=== PATIENT | female | born 1995 | race Caucasian/White ===

== ENCOUNTER 2023-09-11 16:19 | Inpatient (IN) | payer OTHER ==
[~2023-09-11] VITALS: Ht 165.1 cm; Wt 84.4 kg
[2023-09-11 18:17] LABS: URINE APPEARANCE Cloudy; URINE BILIRRUBIN Negative (NEGATIVE); URINE BLOOD Negative; URINE COLOR Dark Yellow; URINE GLUCOSE Negative (NEGATIVE); URINE LEUKOCYTE Small; URINE NITRATE Negative; URINE PROTEIN Trace (NEGATIVE)
[2023-09-11 18:22] LABS: URINE BACTERIA 3076.8 uL (0.0-1933); URINE EPITHELIAL CELLS 106.8 uL (0.0-38.8); URINE RBC 21.9 uL (0.0-20.8); URINE WBC 41.1 uL (0.0-23.2)
[2023-09-11 18:37] LABS: HEMATOCRIT 36.4 % (36.0-45.00); MEAN CELL VOLUME 75.1 fL (80.00-100.00); MEAN CORPUSCULAR HEMOGLOBIN 24.8 pg (27.00-32.0); MEAN CORPUSCULAR HGB CONC 33.1 g/dl (32.0-36.0); PLATELET COUNT 126 K/uL (150-450); RED BLOOD COUNT 4.84 M/uL (4.00-6.00); RED CELL DISTRIBUTION WIDTH 20.3 % (11.5-14.5)
[2023-09-12] MEDS ORDERED: PRENATAL TABLE1 EAC4 PO (13:13)
[2023-09-12] MEDS ORDERED: IRON325 MG PO (13:18)
[2023-09-15 16:07] LABS: INR 0.94; PARTIAL THROMBOPLASTIN TIME 24.7 SECONDS (22.0-34.0); PROTHROMBIN TIME 9.9 SECONDS (9.0-11.5)
[2023-09-15 16:13] LABS: ALBUMIN 2.7 gm/dL (3.4-5.0); BILIRUBIN TOTAL 0.27 mg/dL (0.3-1.2); CALCIUM 8.7 mg/dL (8.5-10.1); CREATININE SERUM 0.42 mg/dL (0.55-1.02); GFR 180.98; GLOBULINA 3.3 G/DL (2.4-3.5); POTASSIUM 3.21 mEq/L (3.5-5.1)
[2023-09-16 22:31] LABS: BASE EXCESS -1.2 mmol/l; BICARBONATE 21.5 mmol/l (23-25); SaO2 74.9 %; Tco2 22.5 mmol/l
[2023-09-16 22:48] LABS: ABG PO2 37.6 mmHg (80-100); o2 21 %
== END 2023-09-18 15:38 | disposition home or self-care (01) | DRG 805 ==
LOC: OBS/DEL 16:19 → OB/GYN 09-12 12:55 → LDR 09-12 12:55 → OB/GYN 09-13 11:52
PROVIDERS: Student in an Organized Health Care Education/Training Program; ADMIT Specialist; ATTEND Specialist
PROC: BY4FZZZ Ultrasonography of Third Trimester, Single Fetus (ICD-10-PCS; 2023-09-12)
PROC: 4A1HXCZ Monitoring of Products of Conception, Cardiac Rate, External Approach (ICD-10-PCS; 2023-09-12)
PROC: 10E0XZZ Delivery of Products of Conception, External Approach (ICD-10-PCS; principal; 2023-09-16)
PROC: 0HQ9XZZ Repair Perineum Skin, External Approach (ICD-10-PCS; 2023-09-16)
DX: O70.0 First degree perineal laceration during delivery (principal); O60.14X0 Preterm labor third trimester with preterm delivery third trimester, not applicable or unspecified; Z37.0 Single live birth; O41.03X0 Oligohydramnios, third trimester, not applicable or unspecified; O36.8130 Decreased fetal movements, third trimester, not applicable or unspecified; Z3A.36 36 weeks gestation of pregnancy; Z20.822 Contact with and (suspected) exposure to COVID-19